=== PATIENT | male | born 1990 | race Caucasian/White ===

== ENCOUNTER 2019-08-12 17:39 | Observation (INO) ==
[2019-08-12] MEDS ORDERED: NITROGLYCERIN SL 0.4 MG TABLET SL ONE ×2 (17:56→17:58)
[2019-08-12] MEDS ORDERED: ASPIRIN 325 MG TABLET ONE (17:56)
[2019-08-12] MEDS ORDERED: ASPIRIN 325 MG TABLET PO STA (17:58)
[2019-08-12 18:08] LABS: Basophils # 0.1 10*3/uL (0.0-0.2); Basophils % 0.9 % (0.0-0.8); Eosinophils # 0.5 10*3/uL (0.0-0.87); Eosinophils % 4.4 % (0.00-10.9); Hematocrit 51.4 VOL% (42.0-52.0); Hemoglobin 17.3 GM/DL (14.0-18.0); Immature Granulocytes % 0.7 %; Immature Granulocytes Absolute 0.07 #; Lymphocytes # 2.4 10*3/uL (1.4-4.0); Mean Corpuscular HGB Conc 33.7 GM/DL (32-36); Mean Corpuscular Volume 99.8 FL (87-102); Mean Platelet Volume 9.6 FL (9.6-12.0); Monocytes % 7.5 % (1.7-12.7); Neutrophils % 63.5 % (38.7-73.9); Platelet Count 238 T/CUMM (130-400); Red Blood Count 5.15 MC/CUMM (3.8-5.5); Red Cell Distribution Width 11.9 % (9.3-17.3); White Blood Count 10.3 T/CUMM (4-12)
[2019-08-12 18:20] LABS: Calcium 8.8 MG/DL (8.5-10.1); Osmolality,Calculated 269.8 MOS/KG (273-304); PT Patient Result 10.3 SECS (9.8-11.9); Partial Thromboplastin Time 29.1 SECS (23.9-33.8)
[2019-08-12] MEDS ORDERED: ENOXAPARIN 30 MG/0.3 ML SYRINGE SUBCUT STA (18:44)
[2019-08-12] MEDS ORDERED: MAGNESIUM SULF RIDER 2 GM in PREMIX 1 EACH IV PRN (19:19)
[2019-08-12] MEDS ORDERED: ALUM/MAG/SIMETH/LIDO VISC 1:1 30 ML BOTTLE PO PRN (19:19)
[2019-08-12] MEDS ORDERED: ACETAMINOPHEN 325 MG TABLET PO PRN (19:19)
[2019-08-12] MEDS ORDERED: ONDANSETRON 4 MG/2 ML VIAL IV PRN (19:19)
[2019-08-12] MEDS ORDERED: NITROGLYCERIN SL 0.4 MG TABLET SL PRN (19:19)
[2019-08-12] MEDS ORDERED: GLUCAGON 1 MG VIAL IM PRN (19:19)
[2019-08-12] MEDS ORDERED: BISACODYL 5 MG TABLET PO PRN (19:19)
[2019-08-12] MEDS ORDERED: MORPHINE 4 MG/1 ML VIAL IV PRN (19:19)
[2019-08-12] MEDS ORDERED: ZALEPLON 5 MG CAPSULE PO PRN (19:19)
[2019-08-12] MEDS ORDERED: POTASSIUM CHLORIDE 20 MEQ TABLET PO PRN (19:19)
[2019-08-12] MEDS ORDERED: DEXTROSE 10% 250 ML BAG IV PRN (19:29)
[2019-08-12 19:46] LABS: Barbiturates Screen,Urine Negative (Negative); Benzodiazepines Screen,Urine Negative (Negative); Cannabinoid Screen,Urine Negative (Negative); Opiate Screen,Urine Negative (Negative); Phencyclidine Screen,Urine Negative (Negative)
[2019-08-12] MEDS ORDERED: CLOPIDOGREL 300 MG TABLET PO ONE (23:17)
[2019-08-12 23:55] LABS: Troponin I 1.13 NG/ML (0.00-0.045)
[2019-08-13 02:45] LABS: Troponin I 5.03 NG/ML (0.00-0.045)
[2019-08-13] MEDS ORDERED: ASPIRIN CHEW 81 MG TABLET PO ONE (03:10)
[2019-08-13 06:53] LABS: PT Patient Result 10.7 SECS (9.8-11.9); Partial Thromboplastin Time 31.7 SECS (23.9-33.8)
[2019-08-13 07:16] LABS: Bilirubin,Total 1.2 MG/DL (0.2-1.0); Calcium 8.6 MG/DL (8.5-10.1); Osmolality,Calculated 269.8 MOS/KG (273-304); Risk Ratio 2.62; VLDL CHOLESTEROL 19.2 MG/DL
[2019-08-13] MEDS ORDERED: hydrALAZINE 20 MG/1 ML VIAL IV PRN (07:43)
[2019-08-13] MEDS ORDERED: amLODIPine 10 MG TABLET PO SCH (09:00)
[2019-08-13 09:18] LABS: CKMB % 7.4 %
[2019-08-13 09:21] LABS: Troponin I 9.85 NG/ML (0.00-0.045)
[2019-08-13] MEDS: ASPIRIN EC 325 MG TABLET PO SCH (09:34)
[2019-08-13] MEDS: lisinopriL 20 MG TABLET PO SCH ×2 (09:34→20:19)
[2019-08-13] MEDS: PANTOPRAZOLE 40 MG TABLET PO SCH (09:34)
[2019-08-13] MEDS: NICOTINE 21 MG/24 HR PATCH TRANSDERM PRN ×2 (09:35)
[2019-08-13] MEDS: ENOXAPARIN 80 MG/0.8 ML SYRINGE SUBCUT SCH ×2 (09:35→20:20)
[2019-08-13] MEDS: NITROGLYCERIN 2% OINT 1 INCH/GM PACK TOP SCH ×2 (10:03→17:24)
[2019-08-13 10:32] LABS: CKMB % 6.9 %
[2019-08-13 10:36] LABS: Troponin I 9.76 NG/ML (0.00-0.045)
[2019-08-13] MEDS: amLODIPine 5 MG TABLET PO SCH (11:42)
[2019-08-13] MEDS: carvediloL 3.125 MG TABLET PO SCH ×2 (11:42→20:20)
[2019-08-13] MEDS: ATORVASTATIN 40 MG TABLET PO SCH ×2 (20:20)
[2019-08-14] MEDS: NITROGLYCERIN 2% OINT 1 INCH/GM PACK TOP SCH ×4 (01:18→17:24)
[2019-08-14] MEDS ORDERED: SODIUM CHLORIDE 0.9% 1,000 ML IV SCH (06:00)
[2019-08-14 07:57] LABS: Basophils # 0.1 10*3/uL (0.0-0.2); Basophils % 0.7 % (0.0-0.8); Eosinophils # 0.5 10*3/uL (0.0-0.87); Eosinophils % 4.8 % (0.00-10.9); Hematocrit 48.6 VOL% (42.0-52.0); Hemoglobin 16.5 GM/DL (14.0-18.0); Immature Granulocytes % 0.5 %; Immature Granulocytes Absolute 0.05 #; Lymphocytes # 1.8 10*3/uL (1.4-4.0); Mean Corpuscular Volume 98.8 FL (87-102); Mean Platelet Volume 10.3 FL (9.6-12.0); Monocytes % 5.6 % (1.7-12.7); Neutrophils % 70.4 % (38.7-73.9); Platelet Count 230 T/CUMM (130-400); Red Blood Count 4.92 MC/CUMM (3.8-5.5); Red Cell Distribution Width 11.8 % (9.3-17.3)
[2019-08-14] MEDS: carvediloL 3.125 MG TABLET PO SCH (08:14)
[2019-08-14] MEDS: ASPIRIN EC 325 MG TABLET PO SCH (08:14)
[2019-08-14] MEDS: amLODIPine 5 MG TABLET PO SCH (08:14)
[2019-08-14] MEDS: ENOXAPARIN 80 MG/0.8 ML SYRINGE SUBCUT SCH (08:14)
[2019-08-14] MEDS: PANTOPRAZOLE 40 MG TABLET PO SCH (08:14)
[2019-08-14] MEDS: lisinopriL 20 MG TABLET PO SCH (08:14)
[2019-08-14 08:24] LABS: Blood Urea Nitrogen 7 MG/DL (7-18); Calcium 8.6 MG/DL (8.5-10.1); Estimated Glom Filtration Rate 127 ML/MIN; Glucose 108 MG/DL (74-106); Osmolality,Calculated 275.5 MOS/KG (273-304)
[2019-08-14] MEDS ORDERED: diphenhydrAMINE CAP 25 MG CAPSULE PO ONE (11:00)
[2019-08-14] MEDS ORDERED: DIAZEPAM 5 MG TABLET PO ONE (11:00)
[2019-08-14] MEDS: NICOTINE 21 MG/24 HR PATCH TRANSDERM PRN (12:07)
[2019-08-14] MEDS ORDERED: HEPARIN/NACL 0.9% 2 UNITS/ML 0 ML IV ONE (12:37)
[2019-08-14] MEDS ORDERED: LIDOCAINE 1% 20 ML VIAL ONE (12:37)
[2019-08-14] MEDS ORDERED: MIDAZOLAM 2 MG/2 ML VIAL ONE (13:26)
[2019-08-14] MEDS ORDERED: HYDROmorphone 2 MG/1 ML VIAL ONE (13:26)
[2019-08-14] MEDS ORDERED: NITROGLYCERIN DRIP 50 MG/250 ML BOTTLE IV ONE (13:33)
[2019-08-14] MEDS ORDERED: VERAPAMIL 5 MG/2 ML VIAL ONE (13:33)
[2019-08-14] MEDS ORDERED: APIXABAN 5 MG TABLET PO ONE (17:44)
[2019-08-14 17:54] VITALS: BP 151/92
[2019-08-14] MEDS ORDERED: APIXABAN 5 MG TABLET PO SCH (21:00)
[2019-08-14] MEDS ORDERED: BUPRENORPHINE NALOXONE BUCCAL SCH (21:00)
== END 2019-08-14 19:02 | disposition home or self-care (01) ==
LOC: N.ED 17:39 → N.EDINP 17:39 → SUATTDRO 19:19 → N.TELEN 20:07
PROVIDERS: ADMIT Internal Medicine; ATTEND Internal Medicine
PROC: CLCCHCL (ICD-10-PCS; 2019-08-14 13:45)